=== PATIENT | male | born 2000 | race Two or more races ===

== ENCOUNTER 2023-04-01 17:37 | Emergency (ER) | payer OTHER ==
[~2023-04-01] VITALS: Ht 177.8 cm; Wt 81.8 kg
[2023-04-01] MEDS ORDERED: BACITRACIN ZINC/POLYMYXIN B 14.2 GM OINTMENT TP ONE (19:45)
[2023-04-01] MEDS ORDERED: LIDOCAINE 1% 10 ML VIAL SQ ONE (19:45)
[2023-04-01 20:57] VITALS: BP 132/88; PULSE 89; RESP 18; TEMP 98.3
== END 2023-04-01 21:05 | disposition home or self-care (01) ==
LOC: EMS 17:43
DX: S42.022A Displaced fracture of shaft of left clavicle, initial encounter for closed fracture (principal); S05.11XA Contusion of eyeball and orbital tissues, right eye, initial encounter; S01.111A Laceration without foreign body of right eyelid and periocular area, initial encounter; Y04.0XXA Assault by unarmed brawl or fight, initial encounter; Y93.9 Activity, unspecified; Y92.89 Other specified places as the place of occurrence of the external cause; Y99.8 Other external cause status
CPT/HCPCS: 99284; 29105; 73000; 73030; 12013; J3490